=== PATIENT | female | born 1995 | race Two or more races ===

== ENCOUNTER 2016-12-17 19:53 | Emergency (ER) | payer OTHER ==
[2016-12-17 19:14] LABS: URINE SOURCE CLEAN CATCH
[2016-12-17 19:17] LABS: URINE APPEARANCE SL CLOUDY; URINE BILIRUBIN NEG (NEG); URINE BLOOD 3+ (NEG); URINE COLOR AMBER; URINE GLUCOSE NEG (NORM); URINE KETONE NEG (NEG); URINE LEUKOCYTE ESTERASE TRACE (NEG); URINE NITRATE NEG (NEG); URINE PROTEIN TRACE (NEG); URINE SPECIFIC GRAVITY 1.025 (1.003-1.035); URINE UROBILINOGEN 0.2 MG/DL (NORM)
[2016-12-17 19:18] LABS: MICRO INDICATED? YES
[2016-12-17 19:23] LABS: URINE RBC INNUM /[HPF] (0-2); URINE WBC 25-50 /[HPF] (0-5)
[2016-12-17 19:24] LABS: CULTURE INDICATED? YES; URINE BACTERIA 2+ (NEG); URINE MUCUS PRESENT; URINE SQUAMOUS EPITHELIAL CELL MANY /[HPF]
[2016-12-17 19:25] LABS: URINE AMORPHOUS SEDIMENT AMORP URATES
[~2016-12-17 19:53] MED LIST: IBUPROFEN800 MG PO; NO MEDICATIONS; [UNRECOGNIZED DRUG - REMARK]
[2016-12-20 02:37] LABS: CHLAMYDIA TRACH Not Detected (Not Detected); N GONOR Not Detected (Not Detected)
== END 2016-12-17 21:17 | disposition home or self-care (01) ==
LOC: SED 19:53
PROVIDERS: Nurse Practitioner
DX: N76.0 Acute vaginitis (principal); N94.6 Dysmenorrhea, unspecified; F17.210 Nicotine dependence, cigarettes, uncomplicated
CPT/HCPCS: 81003; 84703; 87086; 87210; 87491; 87591; 87808; 87905; 99284

== ENCOUNTER 2017-02-09 13:12 | Emergency (ER) | payer OTHER ==
[2017-02-09 13:28] LABS: URINE SOURCE CLEAN CATCH
[2017-02-09 13:31] LABS: URINE APPEARANCE CLEAR; URINE BILIRUBIN NEG (NEG); URINE BLOOD 2+ (NEG); URINE COLOR YELLOW; URINE GLUCOSE NEG (NORM); URINE KETONE NEG (NEG); URINE LEUKOCYTE ESTERASE NEG (NEG); URINE NITRATE NEG (NEG); URINE PH 5.5 (5-8); URINE PROTEIN NEG (NEG); URINE SPECIFIC GRAVITY 1.025 (1.003-1.035); URINE UROBILINOGEN 0.2 MG/DL (NORM)
[2017-02-09 13:33] LABS: MICRO INDICATED? YES
[2017-02-09 13:36] LABS: CULTURE INDICATED? YES; URINE BACTERIA 1+ (NEG); URINE RBC 0-2 /[HPF] (0-2); URINE WBC 0-2 /[HPF] (0-5)
[2017-02-09 13:37] LABS: URINE MUCUS PRESENT; URINE SQUAMOUS EPITHELIAL CELL OCCAS /[HPF]
[2017-02-12 17:01] LABS: CHLAMYDIA TRACH Not Detected (Not Detected); N GONOR Not Detected (Not Detected)
== END 2017-02-09 15:17 | disposition home or self-care (01) ==
LOC: SED 13:12
PROVIDERS: Physician Assistant
DX: N93.9 Abnormal uterine and vaginal bleeding, unspecified (principal)
CPT/HCPCS: 81003; 84703; 87086; 87210; 87491; 87591; 87808; 87905; 99284